=== PATIENT | female | born 1990 | race African-American/Black ===

== ENCOUNTER 2020-09-07 12:14 | Observation (INO) | payer MEDICAID ==
[~2020-09-07] VITALS: Ht 170.2 cm; Wt 86.6 kg
[2020-09-07 12:52] LABS: CLARITY URINE CLOUDY (CLEAR); COLOR URINE YELLOW (YELLOW); KETONES URINE NEGATIVE (NEGATIVE); LEUKOCYTE ESTERASE URINE 3+ (NEGATIVE); NITRITE URINE NEGATIVE (NEGATIVE); OCCULT BLOOD URINE NEGATIVE (NEGATIVE); PH URINE 6.5 (4.5-8.0); PROTEIN URINE NEGATIVE (NEGATIVE); SPECIFIC GRAVITY URINE 1.017 (1.005-1.030)
[2020-09-09] MEDS ORDERED: PREN-176 PO (03:15)
== END 2020-09-07 15:15 | disposition home or self-care (01) ==
LOC: 8 EST LDRP 12:14
PROVIDERS: ADMIT Obstetrics & Gynecology; ATTEND Obstetrics & Gynecology
DX: O62.9 Abnormality of forces of labor, unspecified (principal); Z3A.39 39 weeks gestation of pregnancy
CPT/HCPCS: 59025; 76815; 76818; 81003; G0378; 99281